=== PATIENT | female | born 1980 | race Caucasian/White ===

== ENCOUNTER 2023-03-23 07:47 | Emergency (ER) | payer OTHER, SELFPAY ==
--- NOTE | ~2023-03-23 | CT_ITS ---
EXAMINATION: CT ABDOMEN AND PELVIS WITH CONTRAST CLINICAL INFORMATION: Acute severe lower abdominal pain COMPARISON: None available. TECHNIQUE: Multidetector volumetric images were obtained from the superior aspect of the liver through the pubic symphysis following administration 100 mL of Omnipaque 350 intravenous contrast. Sagittal and coronal reformatted images were obtained on the technologist's workstation. Oral contrast: No This CT examination was performed using dose optimization techniques as appropriate, variously including the following: *Automated exposure control *Adjustment of mA and/or kV according to patient size (this includes techniques or standardized protocols for targeted exams where dose is matched to indication/reason for exam; i.e. extremities or head) *Use of iterative reconstruction technique DLP: 891 mGy-cm FINDINGS: LUNG BASES: There is bibasilar dependent atelectasis. Heart size is normal. LIVER, GALLBLADDER, AND BILIARY TREE: The liver is normal in size, shape, and attenuation. No focal hepatic lesion or biliary ductal dilatation is present. The gallbladder is unremarkable with no evidence of radiopaque gallstones, gallbladder wall thickening, or obvious pericholecystic inflammatory changes. PANCREAS: Unremarkable. SPLEEN: Unremarkable. ADRENAL GLANDS: Unremarkable. KIDNEYS AND URETERS: The kidneys are normal in size, shape, and attenuation. No hydronephrosis, hydroureter, or calculi seen. No perinephric stranding. BLADDER: Unremarkable. GASTROINTESTINAL TRACT: There is moderate scattered stool and gas seen in colon without distention. The small bowel loops are normal caliber. Appendix is not visualized with certainty no inflammatory process seen in the right lower quadrant. There is no appendicolith ABDOMINAL WALL: No significant hernia is appreciated. LYMPH NODES: Normal. VASCULAR: Unremarkable. PELVIC VISCERA: The uterus is anteverted and unremarkable. There is no adnexal mass or free fluid. No abnormal pelvic or inguinal lymph nodes seen. OSSEOUS STRUCTURES: No lytic or sclerotic process seen. CT/CT abdomen pelvis w IV con IMPRESSION: 1. No acute intra-abdominal process seen. 2. Mild constipation. Fleischner guidelines were followed.
--- NOTE | 2023-03-23 07:56 | ED_ITS ---
HPI - Abdominal Pain General Chief Complaint: Abdominal Pain Stated Complaint: nausea and vomiting, per ems Time Seen by Provider: 03/23/23 07:51 Source: patient and EMS Mode of arrival: EMS Limitations: no limitations History of Present Illness HPI narrative: 42-year-old female presents with abdominal pain. The abdominal pain is generalized but locates to the lower abdominal area. The pain is severe, 10/10. Patient is unable to characterize the pain. There is no clear relieving or exacerbating features. The pain does not radiate. The pain is associated with nausea, vomiting and diarrhea. Patient is on gabapentin and methadone for chronic scoliosis related symptoms. She has not been unable to take these medications for 2 days. Related Data Home Medications Medication Instructions Recorded Confirmed methadone 10 mg/mL oral 200 mg PO DAILY 03/23/23 03/23/23 concentrate (Methadose) Previous Rx's Medication Instructions Recorded cephalexin 500 mg capsule 500 mg PO BID #6 caps 03/23/23 ondansetron 4 mg disintegrating 4 mg PO Q8H PRN nausea and 03/23/23 tablet vomiting #10 tabs promethazine 12.5 mg tablet 12.5 mg PO TID PRN nausea and 03/23/23 vomiting #10 tabs Allergies Allergy/AdvReac Type Severity Reaction Status Date / Time No Known Allergies Allergy Verified 03/23/23 07:58 Review of Systems Review of Systems CONSTITUTIONAL: Denies weight loss, fever and chills. HEENT: Denies changes in vision and hearing. RESPIRATORY: Denies SOB and cough. CV: Denies palpitations no CP. GI: See HPI : Denies dysuria and urinary frequency. MSK: Denies myalgia and joint pain. SKIN: Denies rash and pruritus. NEUROLOGICAL: Denies headache and syncope. PSYCHIATRIC: Denies recent changes in mood. Denies anxiety and depression. All other ROS are negative unless in HPI PMFSH Social History Social History Alcohol intake: never Smoked in Last 30 Days: No Advance Directives: Yes Advance Directives Information Provided: Yes Advance Directives on File: No Physical Exam ED Vital Signs: Vital Signs - 24 hr 03/23/23 07:58 03/23/23 10:21 Temperature 98.5 F 98.5 F Pulse Rate 55 60 Respiratory Rate 16 14 Blood Pressure 115/67 113/67 Pulse Oximetry 91 L 96 Oxygen Delivery Method Room Air Room Air BMI result Body Mass Index 35.4 GEN: Well developed, mild acute distress, alert, oriented HEENT: Normocephalic, atraumatic, normal external ears, nose appears normal, no oropharyngeal edema or exudates Eyes: Normal to appearance Neck: Supple, no lymphadenopathy Respiratory: Talks in complete sentences, no respiratory distress, clear to auscultation bilaterally Cardiovascular: Regular rate and rhythm, no murmurs rubs or gallops Abdomen: Mild distention, diffusely tender, no rebound or guarding Back: No CVA tenderness Extremities: No clubbing cyanosis or edema Neurologic: No focal neurologic deficits, cranial nerves 2-12 intact, strength is 5/5 bilaterally Skin: No rash Course Course Course Narrative: 42-year-old female on methadone and gabapentin for chronic scoliosis related symptoms presents with abdominal pain, nausea, vomiting and diarrhea. Examination revealed some generalized tenderness no rebound or guarding. Patient will have routine laboratory analysis, CT scan. Will provide patient with analgesia, antiemetics and IV fluids. Will re-evaluate patient. Reevaluation(s) Reevaluation #2: Patient tolerate oral intake well. She got her methadone dose for today. She has a dose for tomorrow. Will treat her for urinary tract infection. Will prescribe antiemetics treatment. Patient is aware of all results. Medical Decision Making Medical Decision Making [facility] Narrative: 42-year-old female presents with abdominal pain. The pain is in lower abdominal area. There is mild distention but no rebound or guarding. There is definite tenderness. Patient appears to be in mild distress and tearful. Differential diagnosis could include gastroenteritis, diverticulitis, IBD, IBS, methadone withdrawal, viral syndrome, biliary related symptoms. Doubt catastrophic abdominal process such as dissection or AAA. In order to rule out the differential diagnoses, and hopefully diagnosed her etiology, will obtain a CT scan of the abdomen, check urinalysis, check routine laboratory results. I will provide the patient with IV fluids, antiemetics and analgesia. Will re-evaluate patient. Differential Diagnosis Differential Diagnoses: The differential diagnosis associated with the presentation includes (See above) Abdominal pain, nausea/vomiting Admission/Observation Consideration of admission/observation: Escalation of care including admission/observation considered Lab Data [facility] Lab Attestation statement: I reviewed the patient's lab results. 03/23/23 08:13 03/23/23 08:13 Labs: Lab Results 03/23/23 03/23/23 03/23/23 Range/Units 08:13 08:13 09:37 WBC 8.5 (4.8-10.8) X10*3/uL RBC 4.69 (4.20-5.50) X10*6/uL Hgb 13.6 (12.0-16.0) g/dl Hct 41.1 (37.0-47.0) % MCV 87.6 (80.0-98.0) fL MCH 29.0 (27.0-33.0) pg MCHC 33.1 (31.0-35.0) g/dl RDW 12.5 (11.0-16.0) % Plt Count 268 (160-400) X10*3/uL MPV 9.7 (9.4-12.3) fL Immature Gran % (Auto) 0.1 (0.0-0.4) % Neut % (Auto) 81.3 H (45-73) % Lymph % (Auto) 15.8 L (20-40) % [place] % (Auto) 2.6 (2-11) % Eos % (Auto) 0.0 (0-4) % Baso % (Auto) 0.2 (0-2) % Lymph # (Auto) 1.4 (1.2-4.9) X10*3/uL [place] # (Auto) 0.2 (0.1-1.2) X10*3/uL Eos # (Auto) 0.0 (0.0-0.4) X10*3/uL Baso # (Auto) 0.0 (0.0-0.2) X10*3/uL Abs Immat Gran (auto) 0.01 (0.00-0.03) X10*3/uL Absolute Neuts (auto) 6.9 (2.0-8.3) x10*3/uL Absolute Nucleated RBC 0.000 (0.0-0.012) X10*3/uL Nucleated RBC % (auto) 0.0 (0.0-0.2) /100WBC Sodium 141 (135-145) mmol/L Potassium 3.9 (3.3-5.1) mmol/L Chloride 106 (96-108) mmol/L Carbon Dioxide 24 (22-29) mmol/L Anion Gap 15 (12-20) BUN 15 (9-16) mg/dL Creatinine 0.81 (0.5-1.4) mg/dL Estim Creat Clear Calc 125.0 Estimated GFR > 60 Random Glucose 104 (60-115) mg/dL Calcium 9.9 (8.4-10.2) mg/dL Total Bilirubin 0.6 (0.0-1.0) mg/dL AST 22 (5-31) U/L ALT 18 (0-31) U/L Alkaline Phosphatase 145 H (39-117) U/L Total Protein 8.4 H (6.5-8.0) g/dL Albumin 4.3 (3.5-5.0) g/dL Lipase 14 (8-78) U/L Urine Color Dark Yellow Urine Appearance Clear Urine pH 6.5 (5.0-9.0) Ur Specific [place] >= 1.030 H (1.005-1.025) Urine Protein 30 (1+) H (Neg-Trace) mg/dL Urine Glucose (UA) Negative (Negative) mg/dL Urine Ketones 40 (Negative) mg/dL Urine Blood Negative (Negative) Urine Nitrite Negative (Negative) Ur Leukocyte Esterase Trace H (Negative) Urine RBC 0-2 (0-2) /HPF Urine WBC 11-20 H (0-5) /HPF Ur Squamous Epith Cells >20 (0-2) /HPF Urine Bacteria 3+ (None Seen) Hyaline Casts 0-2 (0-2) /LPF Urine Test (NEGATIVE) 03/23/23 Range/Units 09:37 WBC (4.8-10.8) X10*3/uL RBC (4.20-5.50) X10*6/uL Hgb (12.0-16.0) g/dl Hct (37.0-47.0) % MCV (80.0-98.0) fL MCH (27.0-33.0) pg MCHC (31.0-35.0) g/dl RDW (11.0-16.0) % Plt Count (160-400) X10*3/uL MPV (9.4-12.3) fL Immature Gran % (Auto) (0.0-0.4) % Neut % (Auto) (45-73) % Lymph % (Auto) (20-40) % [place] % (Auto) (2-11) % Eos % (Auto) (0-4) % Baso % (Auto) (0-2) % Lymph # (Auto) (1.2-4.9) X10*3/uL [place] # (Auto) (0.1-1.2) X10*3/uL Eos # (Auto) (0.0-0.4) X10*3/uL Baso # (Auto) (0.0-0.2) X10*3/uL Abs Immat Gran (auto) (0.00-0.03) X10*3/uL Absolute Neuts (auto) (2.0-8.3) x10*3/uL Absolute Nucleated RBC (0.0-0.012) X10*3/uL Nucleated RBC % (auto) (0.0-0.2) /100WBC Sodium (135-145) mmol/L Potassium (3.3-5.1) mmol/L Chloride (96-108) mmol/L Carbon Dioxide (22-29) mmol/L Anion Gap (12-20) BUN (9-16) mg/dL Creatinine (0.5-1.4) mg/dL Estim Creat Clear Calc Estimated GFR Random Glucose (60-115) mg/dL Calcium (8.4-10.2) mg/dL Total Bilirubin (0.0-1.0) mg/dL AST (5-31) U/L ALT (0-31) U/L Alkaline Phosphatase (39-117) U/L Total Protein (6.5-8.0) g/dL Albumin (3.5-5.0) g/dL Lipase (8-78) U/L Urine Color Urine Appearance Urine pH (5.0-9.0) Ur Specific [place] (1.005-1.025) Urine Protein (Neg-Trace) mg/dL Urine Glucose (UA) (Negative) mg/dL Urine Ketones (Negative) mg/dL Urine Blood (Negative) Urine Nitrite (Negative) Ur Leukocyte Esterase (Negative) Urine RBC (0-2) /HPF Urine WBC (0-5) /HPF Ur Squamous Epith Cells (0-2) /HPF Urine Bacteria (None Seen) Hyaline Casts (0-2) /LPF Urine Test NEGATIVE (NEGATIVE) Independent Interpretation I performed an independent interpretation of an: CT Scan Radiology Impression Discussion of test interpretation with radiology: I have reviewed the radio logist's reading. Independent Historian Clinical information obtained from an independent historian. History obtained from or confirmed by: EMS Tests considered The following testing was considered but not selected: Ultrasound abdomen Prescription Management I considered prescription management with: Pain Medication Medications Administered Discontinued Medications Generic Name Dose Route Start Last Admin Trade Name Freq PRN Reason Stop Dose Admin Sodium Chloride 1,000 mls @ 999 mls/hr 03/23/23 08:00 03/23/23 09:38 Ns IV 03/23/23 09:00 Infused .Q1H1M [place] Infusion Promethazine HCl 12.5 mg/ 50.5 mls @ 202 mls/hr 03/23/23 07:59 03/23/23 08:33 Sodium Chloride IV 03/23/23 08:00 Infused ONCE ONE Infusion Iohexol 100 ml 03/23/23 09:22 03/23/23 09:23 Iohexol 350 Mg/Ml 100 Ml Infus..Btl IV 03/23/23 09:23 100 ml ONCE ONE Administration Ketorolac Tromethamine 15 mg 03/23/23 07:54 03/23/23 08:20 Ketorolac Tromethamine 15 Mg/Ml Vial IVPUSH 03/23/23 07:55 15 mg ONCE ONE Administration Methadone HCl 200 mg 03/23/23 10:30 03/23/23 10:57 Methadone Hcl 20 Mg/2 Ml Oral.Conc PO 03/23/23 10:31 200 mg ONCE ONE Administration Discharge Plan Discharge Clinical Impression: Abdominal pain, acute Patient Disposition: Home, Self-Care Instructions: Abdominal Pain (ED) Prescriptions: New cephalexin 500 mg capsule 500 mg PO BID Qty: 6 0RF ondansetron 4 mg tablet,disintegrating 4 mg PO Q8H PRN (Reason: nausea and vomiting) Qty: 10 0RF promethazine 12.5 mg tablet 12.5 mg PO TID PRN (Reason: nausea and vomiting) Qty: 10 0RF No Action methadone [Methadose] 10 mg/mL Concentrate 200 mg PO DAILY Referrals: Physician,Unknown J [Primary Care Provider] - 3 days
[2023-03-23 07:58] VITALS: BP 115/67; BP 154/84; PULSE 55; PULSE 74; RESP 16; TEMP 36.9; O2SAT 91; O2SAT 98; BMI 35.4
[2023-03-23] MEDS: 0.9 % Sodium Chloride 1,000 ML 999 ML IV (08:01)
[2023-03-23 08:17] LABS: MANUAL DIFF FLAG NO
[2023-03-23 08:18] LABS: Basophils Percent Auto 0.2 % (0-2); Hematocrit 41.1 % (37.0-47.0); Hemoglobin 13.6 g/dl (12.0-16.0); Imm Gran Abs Auto 0.01 X10*3/uL (0.00-0.03); Imm Gran Pct Auto 0.1 % (0.0-0.4); Lymphocytes Absolute Auto 1.4 X10*3/uL (1.2-4.9); Lymphocytes Percent Auto 15.8 % (20-40); Mean Corpuscular HGB Conc 33.1 g/dl (31.0-35.0); Mean Corpuscular Volume 87.6 fL (80.0-98.0); Mean Platelet Volume 9.7 fL (9.4-12.3); Monocytes Absolute Auto 0.2 X10*3/uL (0.1-1.2); Monocytes Percent Auto 2.6 % (2-11); Neutrophils Absolute Auto 6.9 x10*3/uL (2.0-8.3); Neutrophils Percent Auto 81.3 % (45-73); Platelet Count 268 X10*3/uL (160-400); Red Blood Count 4.69 X10*6/uL (4.20-5.50); Red Cell Distribution Width 12.5 % (11.0-16.0); White Blood Count 8.5 X10*3/uL (4.8-10.8)
[2023-03-23] MEDS: Ketorolac Tromethamine 15 MG/ML VIAL IVPUSH (08:20)
[2023-03-23 08:37] LABS: Alanine Aminotransferase 18 U/L (0-31); Albumin Level 4.3 g/dL (3.5-5.0); Alkaline Phosphatase 145 U/L (39-117); Anion Gap 15 (12-20); Aspartate Amino Transferase 22 U/L (5-31); Bilirubin Total 0.6 mg/dL (0.0-1.0); Blood Urea Nitrogen 15 mg/dL (9-16); Calcium 9.9 mg/dL (8.4-10.2); Carbon Dioxide 24 mmol/L (22-29); Chloride 106 mmol/L (96-108); Estimated Glomerular Filt Rate > 60; Glucose Random 104 mg/dL (60-115); Lipase 14 U/L (8-78); Potassium 3.9 mmol/L (3.3-5.1); Sodium 141 mmol/L (135-145); Total Protein 8.4 g/dL (6.5-8.0)
--- NOTE | 2023-03-23 08:56 | PC.NURSE ---
Methadone dosage verified with [facility], pt gets 200mg, with take home dosage for 6 days. MD alerted, scan form to pharm
[2023-03-23] MEDS: iohexoL 350 MG/ML 100 ML INFUS..BTL IV (09:23)
--- NOTE | 2023-03-23 09:34 | HE.PHANOTE ---
Methadone Dose Pharmacy has received the methadone verification from [facility]. Patient last received methadone 200 mg from [facility] on 03/18/23 and received 6 take home bottles. Information received from CHUCK Monae. Denise Mensah, JoD
[2023-03-23 09:43] LABS: Appearance Urine Clear; Color Urine Dark Yellow; Glucose Urine UA Negative (Negative); Leukocyte Esterase Urine Trace (Negative); Nitrite Urine Negative (Negative); PH 6.5 (5.0-9.0); Specific Gravity - Urine >= 1.030 (1.005-1.025); UMIC TRIGGER UACC YES; Urine Blood Negative (Negative); Urine Ketones 40 mg/dL (Negative); Urine Protein 30 (1+) mg/dL (Neg-Trace)
[2023-03-23 09:46] LABS: UPreg QC Valid YES; Urine Pregnancy NEGATIVE (NEGATIVE)
[2023-03-23 09:54] LABS: Bacteria Urine 3+ (None Seen); Hyaline Casts Urine 0-2 /LPF (0-2); RBC Urine 0-2 /HPF (0-2); Squamous Epithelial Cell Urine >20 /HPF (0-2); UACC Culture Trigger YES
[2023-03-23 10:21] VITALS: BP 113/67; PULSE 60; RESP 14; TEMP 36.9; O2SAT 96
[2023-03-23] MEDS: methADONE HCl 20 MG/2 ML ORAL.CONC 200 MG PO (10:57)
--- NOTE | 2023-03-23 11:45 | PC.NURSE ---
pt did well with PO trial, no vomiting after johnny [place], crackers and PO medications. MD aware and awaiting discharge
== END 2023-03-23 12:02 | disposition home or self-care (01) ==
PROVIDERS: Emergency Provider Emergency Medicine
DX: R10.30 Lower abdominal pain, unspecified (principal); R11.2 Nausea with vomiting, unspecified; Z79.899 Other long term (current) drug therapy
CPT/HCPCS: 36415; 74177; 80053; 81001; 81025; 83690; 85025; 87086; 96361; 96374; 96375; 99284; 99285; J1885; J2550; Q9967